=== PATIENT | female | born 1930 | race Caucasian/White ===

== ENCOUNTER 2017-07-08 17:57 | Emergency (ER) | payer MEDICARE, OTHER ==
[~2017-07-08] VITALS: Ht 160 cm; Wt 52.8 kg
[2017-07-08] MEDS ORDERED: SIMV20TA3 PO (18:38)
[2017-07-08] MEDS ORDERED: METO25TA35 PO (18:38)
[2017-07-08] MEDS ORDERED: VALA500T4 PO (18:38)
[2017-07-08] MEDS ORDERED: CHOL500050 PO (18:38)
[2017-07-08] MEDS ORDERED: TERA2CAP3 PO (18:38)
[2017-07-08] MEDS ORDERED: ALLO100T30 PO (18:38)
[2017-07-08 20:16] VITALS: BP 145/59
== END 2017-07-08 20:27 | disposition home or self-care (01) ==
LOC: ED 20:19
DX: S22.42XA Multiple fractures of ribs, left side, initial encounter for closed fracture (principal); J45.909 Unspecified asthma, uncomplicated; W01.0XXA Fall on same level from slipping, tripping and stumbling without subsequent striking against object, initial encounter; Y93.89 Activity, other specified; Y92.008 Other place in unspecified non-institutional (private) residence as the place of occurrence of the external cause; Y99.8 Other external cause status
CPT/HCPCS: 71250; 99284